=== PATIENT | female | born 2005 | race African-American/Black ===

== ENCOUNTER 2024-01-19 00:09 | Emergency (ER) | payer OTHER ==
[~2024-01-19] VITALS: Ht 157.5 cm; Wt 61.5 kg
[2024-01-19] MEDS ORDERED: FLUO-290 PO (00:23)
[2024-01-19 01:14] LABS: BASO % 0.3 % (0.0-1.0); EOS # 0.1 10^3/uL (0.0-0.5); EOS % 0.8 % (0.0-3.0); HEMATOCRIT 36.4 % (36.0-47.0); HEMOGLOBIN 11.2 g/dl (12.0-15.5); LYMPH # 2.6 10^3/uL (1.5-5.0); LYMPH % 36.5 % (24.0-44.0); MEAN CORPUSCULAR HEMOGLOBIN 26.4 pg (27.0-33.0); MEAN CORPUSCULAR HGB CONC 30.8 g/dl (32.0-36.5); MEAN CORPUSCULAR VOLUME 85.6 fl (80.0-96.0); MONO # 0.7 10^3/uL (0.0-0.8); MONO % 9.6 % (2.0-8.0); NEUTROPHILS # 3.7 10^3/uL (1.5-8.5); NEUTROPHILS % 52.5 % (36.0-66.0); PLATELET COUNT, AUTOMATED 344 10^3/uL (150-450); RED BLOOD COUNT 4.25 10^6/uL (4.00-5.40); WHITE BLOOD COUNT 7.1 10^3/uL (4.0-10.0)
[2024-01-19 01:29] LABS: LIPASE 26 U/L (12-53)
[2024-01-19 01:31] LABS: ALBUMIN 3.8 G/DL (3.2-5.2); ALKALINE PHOSPHATASE 88 U/L (46-116); ALT/SGPT 16 U/L (7.0-40); AST/SGOT 25 U/L (<34); BILIRUBIN,DIRECT 0.1 MG/DL (<0.4); BILIRUBIN,TOTAL 0.4 MG/DL (0.3-1.2); BLOOD UREA NITROGEN 11 MG/DL (9-23); CALCIUM LEVEL 9.5 MG/DL (8.5-10.1); CARBON DIOXIDE LEVEL 27 MMOL/L (20-31); CHLORIDE LEVEL 103 MMOL/L (98-107); CREATININE FOR GFR 0.86 MG/DL (0.55-1.30); GLUCOSE, FASTING 85 MG/DL (60-100); HCG, SERUM QUANTITATIVE < 2.6 MIU/ML (<4.2); POTASSIUM SERUM 4.1 MMOL/L (3.5-5.1); SODIUM LEVEL 136 MMOL/L (136-145); TOTAL PROTEIN 7.3 G/DL (5.7-8.2)
[2024-01-19 04:13] VITALS: BP 108/76; TEMP 98; O2SAT 98
[2024-01-19 05:31] LABS: Trichomonas vaginalis (AMP) NOT DETECTED (NEGATIVE)
[2024-01-19 05:56] LABS: GC DNA AMPLIFICATION NEGATIVE (NEGATIVE)
== END 2024-01-19 04:30 | disposition home or self-care (01) ==
LOC: M ED 00:09
DX: R10.9 Unspecified abdominal pain (principal); Z79.899 Other long term (current) drug therapy

== ENCOUNTER 2024-02-02 08:59 | Emergency (ER) | payer OTHER ==
[~2024-02-02] VITALS: Ht 157.5 cm; Wt 60.8 kg
[2024-02-02 11:40] VITALS: BP 120/73; TEMP 98.8; O2SAT 100
== END 2024-02-02 12:47 | disposition home or self-care (01) ==
LOC: M ED 08:59
DX: R35.89 Other polyuria (principal); N91.2 Amenorrhea, unspecified

== ENCOUNTER → 2024-02-02 | Outpatient (CLI) | payer OTHER ==
[~2024-02-02] MED LIST: FLUO-290 PO
== END ==
LOC: M CARPUL 08:18
PROVIDERS: ATTEND Physician Assistant Medical
DX: Z13.89 Encounter for screening for other disorder (principal)